=== PATIENT | female | born 1995 | race Caucasian/White ===

== ENCOUNTER → 2017-09-12 | Outpatient (CLI) | payer BC | LOC: RESP 21:03 | PROVIDERS: ATTEND Family Medicine | DX: G47.30 Sleep apnea, unspecified (principal); R09.02 Hypoxemia; R40.0 Somnolence; E66.01 Morbid (severe) obesity due to excess calories ==

== ENCOUNTER 2018-08-05 21:35 | Emergency (ER) | payer BC, OTHER ==
[2018-08-05] MEDS ORDERED: FLUORESCEIN SOD 1 MG 1 EA STRP OU ONE (21:50)
[2018-08-05] MEDS ORDERED: PROPARACAINE 0.5% OP 15ML BTL ONE (21:54)
[2018-08-05 23:00] VITALS: BP 110/67
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
[2018-08-05] MEDS ORDERED: ERYTHROMYCIN OP OINT 5MG/GM TU OS ONE (23:20)
[2018-08-06] MEDS ORDERED: bariatric vitamin PO (00:07)
[2018-08-06] MEDS ORDERED: BIOT10005 PO (00:07)
[2018-08-06] MEDS ORDERED: B12/1TAB3 PO (00:07)
[2018-08-06] MEDS ORDERED: POTA99TA6 PO (00:28)
[2018-08-06] MEDS ORDERED: prunelax PO (00:28)
[2018-08-06] MEDS ORDERED: birth control PO (00:28)
== END 2018-08-05 23:36 | disposition home or self-care (01) ==
LOC: ER 21:37
DX: S09.90XA Unspecified injury of head, initial encounter (principal); S40.012A Contusion of left shoulder, initial encounter; S05.02XA Injury of conjunctiva and corneal abrasion without foreign body, left eye, initial encounter; V47.5XXA Car driver injured in collision with fixed or stationary object in traffic accident, initial encounter
CPT/HCPCS: 99282

== ENCOUNTER → 2018-08-05 | Outpatient (CLI) | payer BC, OTHER ==
[~2018-08-05] MED LIST: B12/1TAB3 PO; BIOT10005 PO; POTA99TA6 PO; bariatric vitamin PO; birth control PO; prunelax PO
== END ==
LOC: AMB 21:16
PROVIDERS: ATTEND Nurse Practitioner
DX: R51 Headache (principal); R07.89 Other chest pain; R10.31 Right lower quadrant pain; V47.5XXA Car driver injured in collision with fixed or stationary object in traffic accident, initial encounter
CPT/HCPCS: A0425; A0427